=== PATIENT | female | born 1975 | race African-American/Black ===

== ENCOUNTER 2017-12-07 08:05 | Emergency (ER) | payer OTHER ==
[~2017-12-07] VITALS: Ht 170.2 cm; Wt 133.6 kg
[~2017-12-07 08:05] MED LIST: CIPRO 500MG TA500 MG PO; COLACE 100100 MG/CAP; COLACE 100100 MG/CAP PO; FLEXERIL 1010 MG/TAB; LEVAQUIN 5500 MG/TA1; MOTRIN 600600 MG/TAB; NORCO 325 MG-51 TAB PO; PERCOCET 325 MG1 TA2; PERCOCET 325 MG1 TA2 PO; PYRIDIUM 100MG100 MG PO; PYRIDIUM200 M1 PO
[2017-12-07 08:12] VITALS: BP 167/86; PULSE 93; TEMP 98.7
[2017-12-07] MEDS ORDERED: DULCOLAX STOOL100 MG PO (09:20)
[2017-12-07] MEDS ORDERED: ZITHROMAX Z PA250 MG PO (09:20)
[2017-12-07] MEDS ORDERED: ANUSOL-HC2.5% RC (09:20)
[2017-12-09] MEDS ORDERED: ZOVIRAX400 MG PO (17:31)
== END 2017-12-07 10:00 | disposition home or self-care (01) ==
LOC: COL.ER 08:05
DX: J20.9 Acute bronchitis, unspecified (principal); K62.89 Other specified diseases of anus and rectum